=== PATIENT | male | born 1955 | race Caucasian/White ===

== ENCOUNTER 2020-07-28 15:03 | Inpatient (IN) ==
[2020-07-28 11:28] LABS: Basophils # 0.1 K/mcL (0.0-0.2); Basophils % 0.6 %; Eosinophils # 0.2 K/mcL (0.0-0.6); Eosinophils % 2.4 %; Hematocrit 39.7 % (37.5-50.1); Immature Granulocytes % 0.5 % (0-4); Lymphocytes # 2.1 K/mcL (0.6-4.6); Lymphocytes % 25.5 %; Mean Corpuscular HGB Conc 32.7 g/dL (31.6-35.5); Mean Corpuscular Hemoglobin 29.5 pg (28.0-33.3); Mean Platelet Volume 11.1 fL (9.4-12.4); Monocytes # 0.6 K/mcL (0.0-1.3); Monocytes % 6.7 %; Neutrophils # 5.4 K/mcL (1.6-8.9); Platelet Count 281 K/mcL (140-400); Red Blood Count 4.41 M/mcL (4.19-5.50); Red Cell Distribution Width 12.8 % (11.5-14.5); Segmented Neutrophils % 64.3 %; White Blood Count 8.3 K/mcL (4.3-11.1)
[2020-07-28 11:34] LABS: INR 1.3; Prothrombin Time 14.2 Seconds (9.4-12.1)
[2020-07-28 11:47] LABS: BUN/Creatinine Ratio 10 (6-26); Blood Urea Nitrogen 13 mg/dL (8-23); Calcium 9.4 mg/dL (8.6-10.3); Carbon Dioxide 23 mEq/L (23-29); Chloride 105 mEq/L (98-107); Glucose 150 mg/dL (70-105); Magnesium 1.8 mg/dL (1.6-2.6); Osmolality,Calculated 285 (280-300); Potassium 4.4 mEq/L (3.5-5.1); Sodium 136 mEq/L (136-145); eGFR For African Americans > 60 (> 60); eGFR For Non-African Americans 58 (> 60)
[2020-07-28] MEDS: carvediloL 6.25 MG TABLET PO SCH (16:58)
[2020-07-28] MEDS: Apixaban 5 MG TABLET PO SCH (21:12)
[2020-07-29] MEDS: Apixaban 5 MG TABLET PO SCH ×2 (08:50→19:57)
[2020-07-29] MEDS: lisinopriL 20 MG TABLET PO SCH (08:50)
[2020-07-29] MEDS: amLODIPine 5 MG TABLET PO SCH (08:50)
[2020-07-29] MEDS: Spironolactone 25 MG TABLET PO SCH (08:50)
[2020-07-29] MEDS: carvediloL 6.25 MG TABLET PO SCH ×2 (08:51→17:27)
[2020-07-29] MEDS: Aspirin Enteric Coated 81 MG Tablet PO SCH (08:51)
[2020-07-30] MEDS: Apixaban 5 MG TABLET PO SCH (07:47)
[2020-07-30] MEDS: Spironolactone 25 MG TABLET PO SCH (07:47)
[2020-07-30] MEDS: Aspirin Enteric Coated 81 MG Tablet PO SCH (07:47)
[2020-07-30] MEDS: lisinopriL 20 MG TABLET PO SCH (07:47)
[2020-07-30] MEDS: amLODIPine 5 MG TABLET PO SCH (07:48)
[2020-07-30] MEDS: carvediloL 6.25 MG TABLET PO SCH (07:48)
[2020-07-30 11:12] VITALS: BP 105/66
== END 2020-07-30 13:17 | disposition home or self-care (01) | DRG 310 ==
LOC: 2ANU
PROVIDERS: ADMIT Internal Medicine Clinical Cardiac Electrophysiology; ATTEND Internal Medicine Clinical Cardiac Electrophysiology

== ENCOUNTER 2020-09-28 10:00 | Inpatient (IN) ==
[2020-09-28] MEDS ORDERED: Naloxone 0.4 MG/ML INJ IVP PRN (10:15)
[2020-09-28] MEDS ORDERED: Acetaminophen 325 MG TABLET PO PRN (10:15)
[2020-09-28 11:15] LABS: Basophils % 0.3 %; Eosinophils # 0.2 K/mcL (0.0-0.6); Eosinophils % 1.7 %; Hematocrit 37.4 % (37.5-50.1); Hemoglobin 12.3 g/dL (12.9-16.9); Immature Granulocytes % 0.4 % (0-4); Lymphocytes # 2.4 K/mcL (0.6-4.6); Lymphocytes % 26.2 %; Mean Corpuscular HGB Conc 32.9 g/dL (31.6-35.5); Mean Corpuscular Hemoglobin 29.6 pg (28.0-33.3); Mean Corpuscular Volume 90.1 fL (83.0-100.0); Mean Platelet Volume 11.2 fL (9.4-12.4); Monocytes # 0.6 K/mcL (0.0-1.3); Monocytes % 6.2 %; Neutrophils # 6.1 K/mcL (1.6-8.9); Platelet Count 253 K/mcL (140-400); Red Blood Count 4.15 M/mcL (4.19-5.50); Red Cell Distribution Width 12.8 % (11.5-14.5); Segmented Neutrophils % 65.2 %; White Blood Count 9.3 K/mcL (4.3-11.1)
[2020-09-28 11:30] LABS: BUN/Creatinine Ratio 13 (6-26); Blood Urea Nitrogen 18 mg/dL (8-23); Carbon Dioxide 23 mEq/L (23-29); Chloride 106 mEq/L (98-107); Glucose 152 mg/dL (70-105); Osmolality,Calculated 285 (280-300); Potassium 4.4 mEq/L (3.5-5.1); Sodium 135 mEq/L (136-145); eGFR For African Americans > 60 (> 60); eGFR For Non-African Americans 53 (> 60)
[2020-09-28] MEDS: Apixaban 5 MG TABLET PO SCH ×2 (12:00→20:20)
[2020-09-28] MEDS: lisinopriL 20 MG TABLET PO SCH (14:36)
[2020-09-28] MEDS: amLODIPine 5 MG TABLET PO SCH (14:36)
[2020-09-28] MEDS: Aspirin Enteric Coated 81 MG Tablet PO SCH (14:36)
[2020-09-28] MEDS: carvediloL 6.25 MG TABLET PO SCH (17:05)
[2020-09-29 07:34] LABS: BUN/Creatinine Ratio 13 (6-26); Blood Urea Nitrogen 17 mg/dL (8-23); Calcium 8.8 mg/dL (8.6-10.3); Carbon Dioxide 24 mEq/L (23-29); Chloride 105 mEq/L (98-107); Glucose 137 mg/dL (70-105); Osmolality,Calculated 286 (280-300); Potassium 4.3 mEq/L (3.5-5.1); Sodium 136 mEq/L (136-145); eGFR For African Americans > 60 (> 60); eGFR For Non-African Americans 54 (> 60)
[2020-09-29] MEDS: Aspirin Enteric Coated 81 MG Tablet PO SCH (08:41)
[2020-09-29] MEDS: Apixaban 5 MG TABLET PO SCH ×2 (08:41→20:06)
[2020-09-29] MEDS: carvediloL 6.25 MG TABLET PO SCH ×2 (08:42→17:45)
[2020-09-29] MEDS: lisinopriL 20 MG TABLET PO SCH (08:43)
[2020-09-29] MEDS: amLODIPine 5 MG TABLET PO SCH (08:44)
[2020-09-29] MEDS: Spironolactone 25 MG TABLET PO SCH (08:44)
[2020-09-29] MEDS: Magnesium Oxide 400 MG TABLET PO SCH ×2 (12:24→20:06)
[2020-09-30] MEDS: carvediloL 6.25 MG TABLET PO SCH ×2 (08:34→17:51)
[2020-09-30] MEDS: Aspirin Enteric Coated 81 MG Tablet PO SCH (08:34)
[2020-09-30] MEDS: lisinopriL 20 MG TABLET PO SCH (08:34)
[2020-09-30] MEDS: amLODIPine 5 MG TABLET PO SCH (08:34)
[2020-09-30] MEDS: Apixaban 5 MG TABLET PO SCH ×2 (08:34→21:03)
[2020-09-30] MEDS: Spironolactone 25 MG TABLET PO SCH (09:02)
[2020-10-01] MEDS: Apixaban 5 MG TABLET PO SCH ×2 (07:54→20:15)
[2020-10-01] MEDS: amLODIPine 5 MG TABLET PO SCH (07:54)
[2020-10-01] MEDS: carvediloL 6.25 MG TABLET PO SCH ×2 (07:55→16:32)
[2020-10-01] MEDS: Spironolactone 25 MG TABLET PO SCH (07:55)
[2020-10-01] MEDS: lisinopriL 20 MG TABLET PO SCH (07:55)
[2020-10-01] MEDS: Aspirin Enteric Coated 81 MG Tablet PO SCH (07:55)
[2020-10-02] MEDS: lisinopriL 20 MG TABLET PO SCH (08:55)
[2020-10-02] MEDS: carvediloL 6.25 MG TABLET PO SCH ×2 (08:55→17:46)
[2020-10-02] MEDS: Aspirin Enteric Coated 81 MG Tablet PO SCH (08:55)
[2020-10-02] MEDS: Apixaban 5 MG TABLET PO SCH (08:56)
[2020-10-02] MEDS: amLODIPine 5 MG TABLET PO SCH (08:56)
[2020-10-02] MEDS: Spironolactone 25 MG TABLET PO SCH (08:57)
[2020-10-02 16:41] VITALS: BP 102/68
== END 2020-10-02 20:24 | disposition home or self-care (01) | DRG 310 ==
LOC: 3BNU
PROVIDERS: ADMIT Internal Medicine Clinical Cardiac Electrophysiology; ATTEND Internal Medicine Clinical Cardiac Electrophysiology